=== PATIENT | male | born 1960 | race Two or more races ===

== ENCOUNTER 2023-11-01 16:15 | Emergency (ER) | payer MEDICARE ==
[~2023-11-01] VITALS: Ht 162.6 cm; Wt 71.5 kg
[~2023-11-01 16:15] MED LIST: ATRIN IH; PRED20TA PO
[2023-11-01 18:29] VITALS: BP 130/87; PULSE 65; RESP 17; TEMP 98; O2SAT 99
== END 2023-11-01 18:35 | disposition home or self-care (01) ==
LOC: ER 16:15
DX: M79.89 Other specified soft tissue disorders (principal); M79.672 Pain in left foot; J45.909 Unspecified asthma, uncomplicated; Z79.899 Other long term (current) drug therapy
CPT/HCPCS: 93971; 99284